=== PATIENT | female | born 1980 | race Caucasian/White ===

== ENCOUNTER 2016-06-29 01:05 | Observation (INO) | payer BC, MEDICAID ==
[~2016-06-29] VITALS: Ht 162.6 cm; Wt 114.3 kg
[~2016-06-29 01:05] MED LIST: MAKENA250 MG/1 M SQ; MICRONASE DPS5 MG PO; PRENATAL VIT1 TAB PO; TYLENOL EXTRA500 M1 PO
[2016-07-23] MEDS ORDERED: PEPCID DPS20 MG PO (14:09)
[2016-07-23] MEDS ORDERED: PRENATAL VIT1 TAB PO (14:09)
[2016-07-23] MEDS ORDERED: NIPPLECREAM TP (14:10)
[2016-07-23] MEDS ORDERED: COLACE-DPS100 MG PO (14:10)
[2016-07-23] MEDS ORDERED: MOTRIN-DPS800 MG PO (14:10)
[2016-07-23] MEDS ORDERED: PERCOCET 5 DPS1 TAB PO (14:10)
--- NOTE | 2016-08-02 09:14 | HP ---
ADMIT: 06/29/2016 RM/LOC: 214 [facility] MR#: [id number] [address] [address] GELLER, July [address] [place] [address] History and Physical SEX: F AGE: 36 : 1980 DATE OF SERVICE: REASON FOR ADMISSION: Contractions. HISTORY OF PRESENT ILLNESS: The patient is a 36-year-old, 7, para 3-2- 1-5, who presented to Labor and Delivery at 36-2/7th weeks' gestation with complaints of contractions. The patient was noted to be crow regularly on admission. The patient also had a history of 2 deliveries at 30 and 27 weeks. For this reason, the patient was admitted to observation status. The patient denied any vaginal bleeding or loss of fluid on admission. The patient's has also been complicated by gestational diabetes type A2 and previous section. x3. LABORATORY DATA: Blood type A positive, antibody screen negative, RPR nonreactive, rubella immune, group B Strep positive, HIV negative, Gonorrhea/Chlamydia negative, hep B surface antigen negative. PAST MEDICAL HISTORY: Gestational diabetes, type A2. PAST SURGICAL HISTORY: Cholecystectomy in 2010. CURRENT MEDICATIONS: 1. Augmentin twice daily for sinusitis. 2. Glyburide 5 mg in the morning and 2.5 mg in the evening. 3. vitamin daily. ALLERGIES: NO KNOWN MEDICAL ALLERGIES. FAMILY HISTORY: Mother with cerebrovascular accident and asthma and diabetes, sister with seizure disorder, and daughter with hearing impairment. SOCIAL HISTORY: The patient is . She denies any alcohol, tobacco, or drug use. PHYSICAL EXAMINATION: VITAL SIGNS: On admission, blood pressure 112/74, pulse 91, temperature 98.2, respirations 18. GENERAL: The patient is alert and oriented, in no acute distress. HEART: Regular rate and rhythm without murmurs, gallops, or rubs. LUNGS: Clear to auscultation bilaterally. ABDOMEN: Soft, nontender, gravid. EXTREMITIES: Trace edema. No calf tenderness. heart tones are in the 130s with moderate variability, accelerations ADMIT: 06/29/2016 RM/LOC: 214 [facility] MR#: [id number] [address] [address] GELLERJuly M [address] [place] [address] History and Physical SEX: F AGE: 36 : 1980 present. Contractions every 4 to 5 minutes. Cervix 1 cm dilated, uneffaced, and -3 station. ASSESSMENT AND PLAN: 1. A 36-year-old, 7, para 3-2-1-5 at 36-2/7th weeks' gestation. 2. Threatened premature labor. We will plan to admit for observation and will rule out labor. The patient does have a history of previous delivery x2. 3. Previous section x3,. We would deliver by a section if in labor. 4. Gestational diabetes, type A2. 5. Urinary tract infection. We will continue Macrobid at home. Sugar Wright MD/ mt JOB #: [id number] CC: Sugar Wright, Attending Physician Sugar Wright, Family Physician
== END 2016-06-29 07:30 | disposition home or self-care (01) ==
LOC: BC 01:05 → 2LDRP 01:05 → BC 07-25 08:00
DX: O60.03 Preterm labor without delivery, third trimester (principal); O24.415 Gestational diabetes mellitus in pregnancy, controlled by oral hypoglycemic drugs; O23.43 Unspecified infection of urinary tract in pregnancy, third trimester; Z3A.36 36 weeks gestation of pregnancy; Z79.899 Other long term (current) drug therapy

== ENCOUNTER 2016-07-12 21:20 | Outpatient (CLI) | payer BC, MEDICAID ==
[2016-07-23] MEDS ORDERED: PRENATAL VIT1 TAB PO (14:09)
[2016-07-23] MEDS ORDERED: PEPCID DPS20 MG PO (14:09)
[2016-07-23] MEDS ORDERED: NIPPLECREAM TP (14:10)
[2016-07-23] MEDS ORDERED: PERCOCET 5 DPS1 TAB PO (14:10)
[2016-07-23] MEDS ORDERED: MOTRIN-DPS800 MG PO (14:10)
[2016-07-23] MEDS ORDERED: COLACE-DPS100 MG PO (14:10)
== END 2016-07-12 23:15 | disposition home or self-care (01) ==
LOC: BC 21:20 → 2LDRP 21:20 → BC 23:15
DX: O47.1 False labor at or after 37 completed weeks of gestation (principal); Z3A.38 38 weeks gestation of pregnancy

== ENCOUNTER 2016-07-19 05:30 | Inpatient (IN) | payer BC, MEDICAID ==
[~2016-07-19] VITALS: Ht 162.6 cm; Wt 119.3 kg
[2016-07-23] MEDS ORDERED: PRENATAL VIT1 TAB PO (14:09)
[2016-07-23] MEDS ORDERED: PEPCID DPS20 MG PO (14:09)
[2016-07-23] MEDS ORDERED: PERCOCET 5 DPS1 TAB PO (14:10)
[2016-07-23] MEDS ORDERED: NIPPLECREAM TP (14:10)
[2016-07-23] MEDS ORDERED: MOTRIN-DPS800 MG PO (14:10)
[2016-07-23] MEDS ORDERED: COLACE-DPS100 MG PO (14:10)
--- NOTE | 2016-08-02 09:14 | OR ---
ADMIT: 07/19/2016 RM/LOC: 218 [facility] MR#: [id number] [address] [address] YIMI JULY M [address] [place] [address] Operative/Delivery Room Report SEX: F AGE: 36 : 1980 SURGERY DATE: 07/19/2016 SURGEON: Sugar Wright MD NAME OF PROCEDURE: Repeat low transverse section. FASHION DIRECTOR: Connie Alvarez M.D. and Jo-Ann Lobato MD Resident. POSTOPERATIVE DIAGNOSES: 1. Intrauterine at 39-1/7th weeks' gestation. 2. History of previous section. 3. Gestational diabetes type A2. 4. Maternal obesity. 5. History of delivery x2. POSTOPERATIVE DIAGNOSES: 1. Intrauterine at 39-1/7th weeks' gestation. 2. History of previous section. 3. Gestational diabetes type A2. 4. Maternal obesity. 5. History of delivery x2. FINDINGS: 1. Liveborn male infant, weight 8 pounds 4 ounces. score 8 at 1 minute and 9 at 5 minutes. 2. Uterus with extensive scarring to the bladder and to the peritoneum. 3. Very thin lower uterine segment and unable to visualize tubes and ovaries due to the scarring of the peritoneum to the uterine sidewalls. ESTIMATED BLOOD LOSS: 600 mL. ANESTHESIA: Spinal. COMPLICATIONS: None. INDICATIONS FOR PROCEDURE: The patient is a 36-year-old female, 8, para 3-2-1-5, who presented to Labor and Delivery at 39-1/7th weeks' gestation for scheduled repeat section at term. The patient's had been complicated by history of previous section as well as gestational diabetes type A2 and maternal obesity as well as history of previous deliveries x2. The patient had been on [place] through the for prevention of delivery. The patient also had been on glyburide for control of blood sugars and blood sugars have been controlled during the . Risks, benefits, and alternatives of surgery have been discussed with the patient and she agreed to proceed with repeat section. DESCRIPTION OF PROCEDURE: The patient was taken to the operating room where spinal anesthesia was obtained without difficulty. The patient was placed in ADMIT: 07/19/2016 RM/LOC: 218 [facility] MR#: [id number] [address] [address] [facility] JULY [address] [place] [address] Operative/Delivery Room Report SEX: F AGE: 36 : 1980 dorsal supine position in leftward tilt and prepped and draped in the usual sterile fashion. A Pfannenstiel skin incision was made with the scalpel and was carried through to the underlying layer of fascia. The fascia was nicked in the midline. It was noted that there was very thick scarring of the fascia. The fascial incision was extended bilaterally with Johansen scissors. It was noted that the omentum was scarred to the fascia. The superior aspect of the fascial incision was grasped with Cary clamps and the rectus muscles were dissected off bluntly with Johansen scissors. Again, extensive adhesions were noted. In a similar fashion, the inferior aspect of the fascial incision was grasped with Cary clamps, elevated, and the underlying rectus muscles were dissected off with Johansen scissors. The peritoneum was entered bluntly and this incision was extended bluntly as well. While getting into the peritoneum, it was noted that the peritoneum was extensively adhesed to the uterus. Well placing operating finger into the peritoneum, the operating finger went through the wall of the uterus anteriorly as well. At this point, the lower uterine segment was able to be identified. The bladder blade was placed. The vesicouterine peritoneum was identified and was entered with Metzenbaum scissors. This incision was extended bluntly and a bladder flap was created digitally. The bladder blade was then placed. The lower uterine segment was incised and clear fluid was noted at the time of the amniotomy. The infant's vertex was grasped. It was noted to be not engaged into the pelvis and was rather difficult to deliver through the uterine incision. With fundal pressure, the head was brought down to the uterine incision and the head was able to be delivered. The remainder of the then delivered without difficulty as well. There was a nuchal cord x2 which was relieved. The was dried. The cord was clamped and cut, and the infant was handed off to the warmer where nursing personnel were in attendance. The uterus then delivered intact. Twenty units of Pitocin were placed in IV bag to firm the uterus. It was difficult to exteriorize uterus due to scarring. The uterus was able to be elevated by lifting through the uterine incision and taking down some of the peritoneal scarring on the patient's left side. There were thick adhesions on the patient's right, so it was not able to be completely elevated out of the pelvis. The uterus was cleared of all clots and debris. The uterine incision was closed in a running locked fashion using 0 Vicryl. Additional dcftzm-ib-octte stitches were placed on the right aspect of the uterine incision. Again, visualization was rather difficult due to thick band ADMIT: 07/19/2016 RM/LOC: 218 [facility] MR#: [id number] [facility] [address] [id number] [address] [address] Operative/Delivery Room Report SEX: F AGE: 36 : 1980 of adhesions to the lower uterine segment to the pelvic sidewall on this side. The area that had been entered with a finger was noted to be bleeding slightly. Two tgclix-za-[id number] stitches were placed on this area and the Surgicel was placed over this incision. The uterus was then replaced into the abdominal cavity. The gutters were unable to recheck due to scarring. The incision was again examined and was noted to be hemostatic. The muscles and fascia were made hemostatic with electrocautery. The fascial incision was closed in a running fashion using 0 Vicryl. The subcutaneous layer was brought together using interrupted 2-0 plain gut and the skin incision was closed with subcuticular stapler. The patient tolerated the procedure well. All sponge and needle counts were correct. The patient and her infant recovered in the room in stable condition. Sugar Wright MD/ mt JOB #: [id number] CC: Sugar Wright, Attending Physician Sugar Wright, Family Physician
--- NOTE | 2016-08-02 09:14 | HP ---
ADMIT: 07/19/2016 RM/LOC: 218 [facility] MR#: [id number] [address] [address] GELLER, July [address] [place] [address] Pre-OP History and Physical SEX: F AGE: 36 : 1980 DATE OF SERVICE: HISTORY OF PRESENT ILLNESS: The patient is a 36-year-old, 7, para 3-2- 1-5, who presented to Labor and Delivery at 39-1/7th weeks' gestation for scheduled repeat section at term. The patient's has been complicated by history of previous delivery x2 at 27 and 30 weeks, history of previous section, gestational diabetes type A2, obesity in . She presented for scheduled repeat section. The patient's blood sugars have been well controlled with oral glyburide. LABORATORY DATA: Blood type A positive, antibody screen negative, HIV negative, gonorrhea and chlamydia negative, rubella immune, RPR nonreactive, hep B surface antigen negative, and group B strep negative. PAST MEDICAL HISTORY: Noncontributory. PAST SURGICAL HISTORY: Cholecystectomy in 2010, D and C in 2002, history of cerclage with previous and section x3. CURRENT MEDICATIONS: Glyburide 5 mg a.m. and 2.5 mg p.m. ALLERGIES: NO KNOWN MEDICAL ALLERGIES. FAMILY HISTORY: Sister with seizure disorder. SOCIAL HISTORY: The patient denies any alcohol, tobacco, or drug use. PHYSICAL EXAMINATION: VITAL SIGNS: On admission, vital signs are stable. The patient is afebrile. GENERAL: The patient is alert and oriented, no acute distress. HEART: Regular rate and rhythm without murmurs, gallops, or rubs. LUNGS: Clear to auscultation bilaterally. ABDOMEN: Soft, nontender, gravid. ADMIT: 07/19/2016 RM/LOC: 218 [facility] MR#: [id number] [id number] [place], [place] [address] GELLERJuly [address] [place] [address] Pre-OP History and Physical SEX: F AGE: 36 : 1980 EXTREMITIES: No edema. No calf tenderness. ASSESSMENT AND PLAN: 1. A 36-year-old, 7, para 3-2-1-5 at 39-1/7th weeks' gestation. 2. History of previous section. Plan to proceed with repeat section. The risks, benefits, and alternatives of surgery including, but not limited to the risk of bleeding, possibly requiring a blood transfusion, the risk of infection, the risk of injury to bowel or bladder were discussed with the patient, and she wishes to proceed. 3. Gestational diabetes type A2. Blood sugar has been controlled with glyburide. 4. Maternal obesity. Sugar Wright MD/ mt JOB #: [id number] CC: Sugar Wright, Attending Physician Sugar Wright, Family Physician
--- NOTE | 2016-09-16 07:25 | DS ---
ADMIT: 07/19/2016 RM/LOC: 218 [facility] MR#: [id number] [id number] [place], [place] [address] YIMIJuly [address] [place] [address] General Discharge Summary SEX: F AGE: 36 : 1980 ADMISSION DATE: 07/19/2016 DISCHARGE DATE: 07/22/2016 ADMISSION DIAGNOSES: 1. Intrauterine at 39-1/7th weeks' gestation. 2. History of previous section. 3. Gestational diabetes, type A2, blood sugar controlled with glyburide. 4. Maternal obesity. DISCHARGE DIAGNOSES: 1. Intrauterine at 39-1/7th weeks' gestation. 2. History of previous section. 3. Gestational diabetes, type A2, blood sugar controlled with glyburide. 4. Maternal obesity. HOSPITAL COURSE: The patient underwent the above-named procedure on 07/19/2016. Postoperatively, the patient did well. On postoperative day #1, the patient was doing well. Hemoglobin was noted be 10.1. By postoperative day #2, the patient was ambulating, voiding, and tolerating regular diet, was without difficulty. By postoperative day #3, the patient was deemed stable for discharge. DISCHARGE INSTRUCTIONS: The patient to be discharged to home. She is to continue Motrin and Percocet as needed for pain control. She is to follow up in the clinic in 2 weeks for incision check and 6 weeks for check and will need a 2-hour glucose tolerance test at that time. Sugar Wright MD/ mt JOB #: [id number] CC: Sugar Wright MD, Attending Physician Sugar Wright MD, Family Physician
== END 2016-07-22 11:40 | disposition home or self-care (01) | DRG 765 ==
LOC: 2LDRP 05:30 → BC 05:30 → 2LDRP 05:47 → BC 07-25 12:08
PROVIDERS: ADMIT Obstetrics & Gynecology
PROC: 0UN90ZZ Release Uterus, Open Approach (ICD-10-PCS; principal; 2016-07-19)
PROC: 10D00Z1 Extraction of Products of Conception, Low, Open Approach (ICD-10-PCS; principal; 2016-07-19)
DX: O34.211 Maternal care for low transverse scar from previous cesarean delivery (principal); Z68.41 Body mass index [BMI] 40.0-44.9, adult; O24.425 Gestational diabetes mellitus in childbirth, controlled by oral hypoglycemic drugs; O99.214 Obesity complicating childbirth; E66.9 Obesity, unspecified; O99.89 Other specified diseases and conditions complicating pregnancy, childbirth and the puerperium; N73.6 Female pelvic peritoneal adhesions (postinfective); Z37.0 Single live birth; Z3A.39 39 weeks gestation of pregnancy

== ENCOUNTER 2016-07-27 14:59 | Emergency (ER) | payer OTHER ==
[~2016-07-27 14:59] MED LIST changes: +COLACE-DPS100 MG PO; +MOTRIN-DPS800 MG PO; +NIPPLECREAM TP; +PEPCID DPS20 MG PO; +PERCOCET 5 DPS1 TAB PO
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
== END 2016-07-27 16:25 | disposition home or self-care (01) ==
LOC: ER 14:59
DX: S39.012A Strain of muscle, fascia and tendon of lower back, initial encounter (principal); Z98.890 Other specified postprocedural states; V89.2XXA Person injured in unspecified motor-vehicle accident, traffic, initial encounter